=== PATIENT | male | born 1995 | race American Indian/Alaskan Native ===

== ENCOUNTER 2016-12-09 09:27 | Emergency (ER) | payer SELFPAY ==
[2016-12-09 10:02] VITALS: BP 121/66
--- NOTE | 2016-12-09 12:11 | Emergency Department Report ---
Chief Complaint: Urogenital-Male Stated Complaint: ITCHING IN GROIN AREA Time Seen by Provider: 12/09/16 11:50 - HPI History of Present Illness: Patient here reports that he had sex and then the next day he started having itching in his groin area and wants to be checked for STDs. Has any urinary burning, urgency or frequency. Denies Any penile discharge or blood in his urine. Denies any back or abdominal pain. Eyes any testicular pain. - ROS Review of Systems: All systems are negative unless stated in HPI above. - Exam Vital Signs: Vital Signs 12/09/16 09:58 Temperature 98.2 F Pulse Rate 71 Respiratory 18 Rate Blood Pressure 121/66 O2 Sat by Pulse 100 Oximetry Physical Exam: Head: Normocephalic atraumatic Mouth: Moist, no pharyngeal exudate or erythema. Uvula is midline and oral airway is patent. No gingival enlargement or dental tenderness. No facial swelling. No peritonsillar abscesses. Neck: Supple, no C-spine tenderness, no tracheal deviation. Nontender to palpate. no adenopathy Eyes: Bilateral pupils equal and reactive to light, bilateral EOM intact. Bilateral sclera and conjunctiva without injection. Normal accommodation Lungs: Clear to auscultate bilaterally no rhonchi wheezes or rales. Normal work of breathing extremity; No CCE. +2 pulses. No neurovascular compromise Abdomen: Soft, flat, nontender to palpate in all quadrants. Bowel sounds and no CVA tenderness. Cardiovascular: S1-S2, regular rate rhythm. No murmurs. Skin: clean Dry and intact no rash no lesions Psych: Normal mood and behavior MSE screening note: Focused history and physical exam performed. Due to findings the following was ordered:TBD ED Disposition for MSE Condition: Stable Referrals: PRIMARY CARE, [Primary Care Provider] - 3-5 Days
== END 2016-12-09 12:15 ==
LOC: ED 09:27
DX: L29.9 Pruritus, unspecified (principal); Z53.21 Procedure and treatment not carried out due to patient leaving prior to being seen by health care provider

== ENCOUNTER 2022-07-13 17:39 | Emergency (ER) | payer SELFPAY ==
[2022-07-13 18:31] VITALS: BP 149/90
== END 2022-07-13 20:35 | disposition left against medical advice (07) ==
LOC: ED 17:39
DX: S93.492A Sprain of other ligament of left ankle, initial encounter (principal); Z53.21 Procedure and treatment not carried out due to patient leaving prior to being seen by health care provider; W10.8XXA Fall (on) (from) other stairs and steps, initial encounter; Y93.89 Activity, other specified; Y92.89 Other specified places as the place of occurrence of the external cause; Y99.8 Other external cause status